=== PATIENT | female | born 1990 | race Caucasian/White ===

== ENCOUNTER → 2018-08-30 | Outpatient (CLI) | payer OTHER | LOC: FIMAGING 07:50 | PROVIDERS: ATTEND Obstetrics & Gynecology | DX: O35.8XX0 Maternal care for other (suspected) fetal abnormality and damage, not applicable or unspecified (principal); Z3A.34 34 weeks gestation of pregnancy ==

== ENCOUNTER 2018-09-23 11:44 | Observation (INO) | payer OTHER ==
[2018-09-23 12:24] LABS: PLATELET COUNT 221 10^3/uL (150-400)
--- NOTE | 2018-09-23 14:35 | PDGENHP ---
History and Physical - Chief Complaint headache - History of Present Illness 27 at 38w1d presented with MESSER today, and some visual changes. Took acetominophen prior to arrival and since being here, MESSER and visual changes have all resolved. Currently, good FM, no VB, no LOF. Occas mild ctxn. Does have a hx of migraines with aura, but has not had any during . No epigastric or RUQ pain. course c/b: depression and anxiety - managed without meds, pyelectasis with plan for follow up of baby. labs wnl including neg Innatal and Standard Panel, AB pos, Rub Imm and GBS neg. History Information - Allergies/Home Medication List Allergies/Adverse Reactions: Penicillins Allergy (Verified 09/23/18 11:58) I have personally reviewed and updated: family history, medical history, social history, surgical history - Past Medical History Additional medical history: anxiety & depression - managed without medications currently. asthma. migraines - Surgical History Additional surgical history: wisdom teeth - Family History Additional family history: colon ca, DM - MGF. pancreatic ca - PGM. CVA - PGF - Social History Smoking Status: Never smoked Alcohol Use: None Drug Use: None Review of Systems Review of Systems: ROS: 10pt was reviewed & negative except for what was stated in HPI & below Physical Exam Physical Exam: VSS, afeb Bps 120-130's / 80s. Only one BP with a diastolic in the 90s, at 93. FHR - reactive, Cat 1 toco - irreg ctxns q 2-5, but pt not feeling the majority of them Constitutional: no apparent distress, appears nourished Eyes: PERRL, EOMI Ears, Nose, Mouth, Throat: moist mucous membranes, hearing normal, ears appear normal Cardiovascular: regular rate and rhythym Respiratory: no respiratory distress, no rales or rhonchi, clear to auscultation Gastrointestinal: normoactive bowel sounds, soft, non-tender abdomen (fundus c/ w 38 wk, NT) Skin: warm, normal color Musculoskeletal: full muscle strength Neurologic: AAOx3 Psychiatric: interacting appropriately Lab Data & Imaging Review 09/23/18 12:11 09/23/18 12:11 WBC 11.83 10^3/uL (3.80-9.50) H 09/23/18 12:11 RBC 4.46 10^6/uL (4.18-5.33) 09/23/18 12:11 Hgb 12.6 g/dL (12.6-16.3) 09/23/18 12:11 Hct 38.0 % (38.0-47.0) 09/23/18 12:11 MCV 85.2 fL (81.5-99.8) 09/23/18 12:11 MCH 28.3 pg (27.9-34.1) 09/23/18 12:11 MCHC 33.2 g/dL (32.4-36.7) 09/23/18 12:11 RDW 15.1 % (11.5-15.2) 09/23/18 12:11 Plt Count 221 10^3/uL (150-400) 09/23/18 12:11 MPV 9.6 fL (8.7-11.7) 09/23/18 12:11 Neut % (Auto) 79.9 % (39.3-74.2) H 09/23/18 12:11 Lymph % (Auto) 11.6 % (15.0-45.0) L 09/23/18 12:11 Peñuelas % (Auto) 5.2 % (4.5-13.0) 09/23/18 12:11 Eos % (Auto) 2.5 % (0.6-7.6) 09/23/18 12:11 Baso % (Auto) 0.3 % (0.3-1.7) 09/23/18 12:11 Nucleat RBC Rel Count 0.0 % (0.0-0.2) 09/23/18 12:11 Absolute Neuts (auto) 9.47 10^3/uL (1.70-6.50) H 09/23/18 12:11 Absolute Lymphs (auto) 1.37 10^3/uL (1.00-3.00) 09/23/18 12:11 Absolute Monos (auto) 0.61 10^3/uL (0.30-0.80) 09/23/18 12:11 Absolute Eos (auto) 0.29 10^3/uL (0.03-0.40) 09/23/18 12:11 Absolute Basos (auto) 0.03 10^3/uL (0.02-0.10) 09/23/18 12:11 Absolute Nucleated RBC 0.00 10^3/uL (0-0.01) 09/23/18 12:11 Immature Gran % 0.5 % (0.0-1.1) 09/23/18 12:11 Immature Gran # 0.06 10^3/uL (0.00-0.10) 09/23/18 12:11 BUN 6 mg/dL (7-23) L 09/23/18 12:11 Creatinine 0.5 mg/dL (0.6-1.0) L 09/23/18 12:11 Estimated GFR > 60 09/23/18 12:11 Uric Acid 3.9 mg/dL (2.5-6.8) 09/23/18 12:11 Total Bilirubin 0.5 mg/dL (0.1-1.4) 09/23/18 12:11 Conjugated Bilirubin 0.2 mg/dL (0.0-0.5) 09/23/18 12:11 Unconjugated Bilirubin 0.3 mg/dL (0.0-1.1) 09/23/18 12:11 AST 30 IU/L (14-46) 09/23/18 12:11 ALT 26 IU/L (9-52) 09/23/18 12:11 Lactate Dehydrogenase 554 IU/L (313-618) 09/23/18 12:11 Urine Color YELLOW 09/23/18 12:11 Urine Appearance HAZY 09/23/18 12:11 Urine pH 6.0 (5.0-7.5) 09/23/18 12:11 Ur Specific [place] 1.010 (1.002-1.030) 09/23/18 12:11 Urine Protein NEGATIVE (NEGATIVE) 09/23/18 12:11 Urine Ketones 1+ (NEGATIVE) H 09/23/18 12:11 Urine Blood NEGATIVE (NEGATIVE) 09/23/18 12:11 Urine Nitrate NEGATIVE (NEGATIVE) 09/23/18 12:11 Urine Bilirubin NEGATIVE (NEGATIVE) 09/23/18 12:11 Urine Urobilinogen NEGATIVE EU (0.2-1.0) 09/23/18 12:11 Ur Leukocyte Esterase NEGATIVE (NEGATIVE) 09/23/18 12:11 Ur Random Creatinine 50.1 mg/dL 09/23/18 12:31 U Random Total Protein 9 mg/dL (0-11) 09/23/18 12:31 Urine Glucose NEGATIVE (NEGATIVE) 09/23/18 12:11 p/c = 0.18 Assessment & Plan Assessment: 27 yo primip at 38w1d with MESSER and vis changes which have resolved with rest and acetominophen. BPs elevated (120-130/80s) over baseline through course (100s/ 60s) Plan: dc home with preeclamptic precautions. BP check and NST in the office tomorrow. Abena Maradiaga MD, FACOG [facility].
== END 2018-09-23 14:24 | disposition home or self-care (01) ==
LOC: FLD 11:44
PROVIDERS: ADMIT Hospitalist; ATTEND Hospitalist
DX: O99.89 Other specified diseases and conditions complicating pregnancy, childbirth and the puerperium (principal); R51 Headache; Z3A.38 38 weeks gestation of pregnancy
CPT/HCPCS: G0378 ×2

== ENCOUNTER 2018-10-03 10:41 | Observation (INO) | payer OTHER ==
[2018-10-03 11:36] LABS: PLATELET COUNT 256 10^3/uL (150-400)
--- NOTE | 2018-10-03 15:29 | GHP ---
DATE OF ADMISSION: 10/03/2018 ADMITTING DIAGNOSES: 1. Intrauterine at 39 weeks and 4 days. 2. Elevated blood pressures. HISTORY OF PRESENT ILLNESS: The patient is a 27-year-old 2, para 0-0-1- 0 at 39 weeks and 4 days, with an estimated due date of 10/06/2018 by LMP 12/30/2017 and consistent with first trimester ultrasound at 8 weeks. Patient presented to the office today for a visit with elevated blood pressures. Initial blood pressure was 126/86, and repeat was 134/96 x2. The patient was frustrated after a 40-minute wait. She denies any headaches, visual changes, or right upper quadrant pain. She did have headache about a week ago, which resolved and had a negative PIH workup. She is very emotional today. Last night, she had some nausea and vomiting around dinner time. Denies any nausea, vomiting today. The patient was sent over to Labor and Delivery for a PIH evaluation. The patient states there is good movement noted. She denies any contractions, leakage of fluid, or vaginal bleeding. The patient has good care at [facility], and presented in her 1st trimester. is complicated by history of depression and anxiety; the patient is not currently taking any medications, and has had no issues during the . History of migraine headaches, which were not an issue during this . There was a diagnosis of bilateral pyelectasis at 20 weeks, and the patient had ultrasounds serially with MFM, and plan is followup 1 to 2 weeks of life with imaging. The patient did receive Tdap as well as flu vaccine. GBS culture is negative. PAST OB HISTORY: In 2013, TAB. 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 Cycles are every 29 days for 4 to 5 days. LMP 12/30/2017. The patient denies a history of abnormal Pap smears or any exposure to sexually-transmitted diseases. CURRENT MEDICATIONS: Include vitamins, folic acid, calcium. ALLERGIES: Penicillin. PAST MEDICAL HISTORY: Remarkable for depression, anxiety, migraine headaches. PAST SURGICAL HISTORY: Julian teeth extraction. FAMILY HISTORY: Maternal grandfather: Colon cancer at age 88. Paternal grandmother: Pancreatic cancer. Mother: Migraine headaches. Paternal uncle: Seizure disorder. Paternal grandfather: Stroke. SOCIAL HISTORY: The patient is and lives with her . She is in tech support. Denies any current alcohol, tobacco, or illicit drug use. REVIEW OF SYSTEMS: A 10-point review of systems is negative. LABS: First trimester H and H, 14 and 39.2, platelets 210. Blood type AB-positive, antibody negative. RPR nonreactive. Rubella immune. Hepatitis B surface antigen negative. HIV negative. Standard panel is negative. UA culture is negative. Pap, gonorrhea, chlamydia cultures all negative. Innatal screen negative. Third trimester H and H 11.9 and 36. One- hour glucola 97. GBS culture is negative. EXAM: VITAL SIGNS: On admission, stable. The patient is afebrile at 37.6, heart rate 76, respirations 18. Blood pressures are labile, as low as 115/65 and a high of 142/95 when the RN was drawing blood. GENERAL: The patient is a well-nourished , well-developed female. Alert and oriented x3. No apparent distress. SKIN: Warm, dry without rash. NEURO: Grossly intact. CARDIOVASCULAR: Regular rate and rhythm. LUNGS: Clear to auscultation bilaterally. ABDOMEN: Gravid, soft , and nontender. PELVIC EXAM: The patient is noted to be 1 cm dilated, 50% effaced, -2, intact, cephalic. EXTREMITIES: Normal to inspection without calf tenderness or edema. Normal reflexes. No clonus. heart tones category 1 tracing with baseline of 140 beats per minute. Positive accelerations. No decelerations. Moderate variability. On toco, she is indira irregularly every 3 to 7 minutes. The patient does not feel these contractions. LABORATORY DATA: H and H of 12.6 and 38.8; platelets 256. Creatinine of 0.5. Uric acid 3.7. AST 27, ALT 40. LDH is 520. Urine random creatinine 9.8, urine random protein 14, which is elevated; [id number] at 1.4. ASSESSMENT/PLAN: The patient is a 27-year-old 2, para 0-0-1-0 at 39 and 4 weeks, who presents with elevated blood pressures. 1. Admit to Labor and Delivery for observation 2. Serial blood pressures mostly stable 3. The patient is asymptomatic at this time. 4. heart tones arCategory 1 tracing, reassuring. 5. Review lab work that was all normal, except for elevated protein-creatinine ratio. She is asymptomatic at this time and had only 2 blood pressures over the last 2 hours of 140/90's. The patient does meet criteria for preeclampsia at this time, with no severe features. Discussed induction of labor and patient would rather have close monitoring of her blood pressures and is more comfortable going home at this time. 6. Plan is to discharge patient home with repeat blood pressure, NST in the office 10/05/18. She will get a blood pressure cuff and monitor blood pressures at home and watch for any -induced hypertension symptoms. 7. Instructed patient to call with any elevated blood pressures greater than 140/90, any PIH symptoms; labor precautions given as well. /[id number]/MODL MTDD
== END 2018-10-03 13:33 | disposition home or self-care (01) ==
LOC: FLD 10:41
PROVIDERS: ADMIT Obstetrics & Gynecology; ATTEND Obstetrics & Gynecology
PROC: 4A1HX4Z Monitoring of Products of Conception, Cardiac Electrical Activity, External Approach (ICD-10-PCS; principal; 2018-10-03)
DX: Z34.93 Encounter for supervision of normal pregnancy, unspecified, third trimester (principal); R03.0 Elevated blood-pressure reading, without diagnosis of hypertension; Z3A.39 39 weeks gestation of pregnancy
CPT/HCPCS: 59025; G0378

== ENCOUNTER 2018-10-03 21:54 | Inpatient (IN) | payer OTHER ==
[2018-10-03] MEDS ORDERED: EPSOM SALT 454 GM TP PRN (22:09)
[2018-10-03] MEDS ORDERED: OXYTOCIN/RINGERS LACTATE 1,000 ML IV PRN (22:09)
[2018-10-03] MEDS ORDERED: IBUPROFEN 600 MG TAB PO PRN (22:09)
[2018-10-03] MEDS ORDERED: TERBUTALINE SULFATE 1 MG/ML VIAL IV PRN (22:09)
[2018-10-03] MEDS ORDERED: LIDOCAINE 1% 300 MG/30 ML SDV SC PRN (22:09)
[2018-10-03] MEDS ORDERED: OLIVE OIL 118 ML BTL MISC PRN (22:09)
[2018-10-03] MEDS ORDERED: MISOPROSTOL 200 MCG TAB PR PRN (22:09)
[2018-10-03] MEDS ORDERED: LR 1,000 ML IV PRN (22:09)
[2018-10-03] MEDS ORDERED: LR 500 ML IV PRN (22:50)
[2018-10-03] MEDS ORDERED: ACETAMINOPHEN 500 MG TAB PO PRN (22:58)
[2018-10-03] MEDS ORDERED: ZOLPIDEM TARTRATE 5 MG TAB PO PRN (22:58)
[2018-10-03] MEDS ORDERED: OXYTOCIN/RINGERS LACTATE 500 ML IV SCH (23:00)
[2018-10-03 23:15] LABS: PLATELET COUNT 272 10^3/uL (150-400)
--- NOTE | 2018-10-03 23:47 | GHP ---
DATE OF ADMISSION: 10/03/2018 ADMITTING DIAGNOSES: 1. Intrauterine at 39 weeks and 4 days. 2. Preeclampsia without severe features. HISTORY OF PRESENT ILLNESS: Patient is a 27-year-old 2, para 0-0-1-0 at 39 weeks and 4 days with estimated due date 10/06/2018, by LMP 12/30/2017, and consistent with first trimester ultrasound at 8 weeks. The patient presented to labor and delivery earlier this afternoon with elevated blood pressures. She was seen in the office and had an initial blood pressure of 126/ 86, repeat was 134/96. The patient then sent to Labor and Delivery. She had mostly normal blood pressures, but had 2 blood pressures of 140s over 90s. The patient denies any headaches, visual changes, or right upper quadrant pain. The patient was sent home with [facility] precautions. Patient then called this evening with a blood pressure of 141/95. She still denies any visual changes, headaches, or right upper quadrant epigastric pain. States good movement. She is still indira irregularly every 3-5 minutes. Denies any leakage of fluid or vaginal bleeding. The patient has good care at [facility], and presented in her 1st trimester. is complicated by history of depression, anxiety. Patient is not currently taking any medications and has had no issues during the . The patient has history of migraine headaches, which were not an issue during the . There was diagnosis of bilateral pyelectasis at 20 weeks. The patient had serial ultrasounds with MFM and plan is followup 1-2 weeks of life with imaging. The patient did receive Tdap as well as flu vaccine. GBS culture is negative. PAST OB HISTORY: In 2013, patient had a TAB. PAST BOX PACKER HISTORY: Age of menarche is 10. Cycles are every 29 days, for 4-5 days. LMP 12/30/2017. The patient denies a history of abnormal Pap smears or exposure to sexually transmitted diseases. CURRENT MEDICATIONS: vitamins, folic acid, calcium. ALLERGIES: Penicillin. PAST MEDICAL HISTORY: Remarkable for depression, anxiety, migraine headaches. PAST SURGICAL HISTORY: Cylinder teeth extraction. FAMILY HISTORY: Paternal grandfather, colon cancer at age 88. Paternal grandmother, pancreatic cancer. Mother, migraine headaches. Paternal uncle, seizure disorder. Paternal grandfather, stroke. SOCIAL HISTORY: The patient is and lives with her . She is in tech support. Denies any alcohol, tobacco, or illicit drug use currently. REVIEW OF SYSTEMS: 10-point review of systems is negative. Pertinent positives noted in HPI. LABS: First trimester H and H 14 and 39.2. Platelets 210. Blood type AB-positive, antibody negative. RPR nonreactive. Rubella immune. Hepatitis B surface antigen negative. HIV negative. Standard panel is negative. UA cultures negative. Pap, gonorrhea, chlamydia cultures all negative. Innatal screen is negative. 3rd trimester H and H 11.9 and 36. One- hour Glucola 97. GBS culture is negative. LABS: Platelet count 256, creatinine 0.5, uric acid 3.7, AST 27, ALT 40, LDH 520 , P to C ratio elevated at 1.4. PHYSICAL EXAMINATION: VITAL SIGNS: On admission vital signs are stable. The patient is afebrile at 36.2, heart rate 92, respirations 18, initial blood pressure 135/92. GENERAL APPEARANCE: The patient is a well-nourished, well- developed female, alert and oriented x3. No apparent distress. SKIN: Warm, dry without rash. NEURO: Grossly intact. CARDIOVASCULAR: Regular rate and rhythm. LUNGS: Clear to auscultation bilaterally. ABDOMEN: Gravid, soft, nontender. PELVIC: 1 cm dilated, 60% effaced, -2, intact, cephalic. EXTREMITIES: Normal to inspection without calf tenderness or edema. Normal reflexes with no clonus. heart tones reveal Category II tracing with baseline of 140 beats per minute. Positive accelerations. Occasional variable decels. Moderate variability. On toco, she is indira irregularly every 3-5 minutes. Overall, the strip is reassuring. ASSESSMENT AND PLAN: Patient is a 27-year-old 2, para 0-0-1-0 at 39 and 4 weeks with preeclampsia without severe features. 1. Admit to Labor and Delivery for induction of labor. 2. Mckenna bulb was placed digitally without difficulty and inflated with 30 cc NS. Plan to start Pitocin per protocol in the in morning at 0600. 3. GBS culture is negative. No prophylactic antibiotics are needed. 4. Will continue to monitor blood pressures closely as well as development of any -induced hypertension symptoms. If she develops any severe features , will start magnesium sulfate. 5. Anticipate spontaneous vaginal delivery. /[id number]/MODL MTDD
--- NOTE | 2018-10-04 09:17 | OBPROG ---
Labor Progress Note Assessment/Plan: Assessment: IUP at 39w5d, preeclampsia without severe features induction with nicholson last noc and pit this am AB+. GBS- Plan: AROM at 851am, clear cont pit nitrous prn cx 10/04/18 09:13 Subjective/Intrapartum Course: 10/04/18 09:17 Pt doing well. Got good sleep with ambien. nicholson didn't bother through night - still in place. GFM. no MESSER or n/v this am. no visual changes. understands plan - will try to maintain activity but understands elevated b/p might require bedrest. ok with AROM - nicholson out and cx , AROM with clear fluid - 08:51 Objective: 10/03/18 23:06 Patient ABO/Rh AB POSITIVE 10/03/18 23:06 - SVE Dilation (cm): 4 Effacement (%): 90 Station: 0 Membranes: AROM Amniotic Fluid Color: Clear - Contraction Pattern Assessment Current Contraction Pattern: Regular (q3 min on 6 mu/min pit - intensity increased after AROM) - FHR Assessment Jackson FHR (bpm): 130 FHR Pattern Variability: Moderate FHR Category: 1 (had variable after AROM but none since) Oxytocin Orders Assessment - Pre-Induction/Augmentation Assessment Gestational Age: 39 week(s) and 4 day(s) ICD10 Worksheet Patient Problems: Problems Problem Status Onset Pre-eclampsia affecting , antepartum Acute
[2018-10-04] MEDS ORDERED: LIDOCAINE 1% 300 MG/30 ML SDV ONE (09:28)
[2018-10-04] MEDS ORDERED: OLIVE OIL 118 ML BTL ONE (09:28)
[2018-10-04] MEDS ORDERED: OXYTOCIN 10 UNIT/ML VIAL ONE (09:28)
[2018-10-04] MEDS ORDERED: TERBUTALINE SULFATE 1 MG/ML VIAL ONE (09:28)
[2018-10-04] MEDS ORDERED: AMMONIA AROMATIC 1 EACH AMP IH ONE (09:28)
[2018-10-04] MEDS ORDERED: MISOPROSTOL 200 MCG TAB ONE (09:29)
[2018-10-04] MEDS ORDERED: fentaNYL 2MCG/ML/BUP 0.1% RTU 100 ML BAG EP ONE (11:34)
[2018-10-04] MEDS ORDERED: BUPIVACAINE 0.25% 30 ML SDV ONE (11:35)
[2018-10-04] MEDS ORDERED: PHENYLEPHRINE HCL 100 MCG/ML SYR ONE (11:35)
[2018-10-04] MEDS ORDERED: fentaNYL 100 MCG/2 ML INJ ONE (11:36)
[2018-10-04] MEDS ORDERED: PHENYLEPHRINE HCL 100 MCG/ML SYR IVP PRN (15:27)
[2018-10-04] MEDS ORDERED: ONDANSETRON 4 MG/2 ML VIAL IVP PRN (15:27)
[2018-10-04] MEDS ORDERED: fentaNYL 2MCG/ML/BUP 0.1% RTU 100 ML EP SCH (15:30)
[2018-10-04] MEDS ORDERED: LR 500 ML IV SCH (15:30)
--- NOTE | 2018-10-04 15:34 | POSTANESTH ---
Post Anesthetic Evaluation Cardiovascular Status: Normal, Stable, Similar to Pre-Op Cond Respiratory Status: Normal, Stable, Similar to Pre-op Cond. Level of Consciousness/Mental Status: Can Participate in Eval, Alert and Oriented Pain Control: Adequate, Prn Tx Ordered Nausea/Vomiting Control: Adequate, Prn Tx Ordered Complications Possibly Related to Anesthesia: None Noted
--- NOTE | 2018-10-04 15:34 | PREANESOB ---
Obstetric Pre-Anesthesia Info - General Info Proposed Procedure: Labor and delivery with pitocin. : 2 Para: 0 MALIK: 10/06/18 Gestational Age: 39 week(s) and 4 day(s) - Info Status: Full Term Monitors: External FHR Baseline (bpm): 130 FHR Pattern: Reassuring - Labor Status Cervical Dilation per last OB SVE: 4 Station per last OB SVE: 0 Amniotic Fluid Color: Clear Pitocin: In Use PIH: Mild Indications for Labor Analgesia: Induction of Labor Labor Epidural: Proposed Anesthesia ROS: Muddy teeth. Allergies/Adverse Reactions: Allergy/AdvReac Type Severity Reaction Status Date / Time julia Allergy Verified 10/03/18 11:03 Penicillins Allergy Rash Verified 10/03/18 11:02 pine nut Allergy Verified 10/03/18 11:03 Pistacia Vera (Pistachio) Allergy Verified 10/03/18 11:03 cashews Allergy Uncoded 10/03/18 11:03 Home Medications: Medication Instructions Recorded Fluticasone Nasal [Flonase Nasal 2 sprays NASAL DAILY 10/03/18 [place]] Vit27&Calcium/Iron/FA 10/03/18 [] Visit Medications: Generic Name Dose Route Start Last Admin Trade Name Freq PRN Reason Stop Dose Admin Acetaminophen 1,000 mg 10/03/18 22:58 Tylenol PO 04/01/19 22:57 Q6HRS PRN Pain, Mild/Fever, Can Take PO Diphenhydramine HCl 25 - 50 mg 10/04/18 15:27 Benadryl Injection IVP 04/02/19 15:26 Q6HRS PRN Itching Lactated Ringer's 1,000 mls @ 0 mls/hr 10/03/18 22:09 10/04/18 05:59 Lr IV 10/04/18 22:08 1,000 mls PRN PRN Administration SEE PROTOCOL CONDITIONS Protocol Per Protocol Oxytocin/Lactated Ringer's 1,000 mls @ 125 mls/hr 10/03/18 22:09 Pitocin 20 Units/Lr (Premix) IV PRN PRN Post bleeding Lactated Ringer's 500 mls @ 500 mls/hr 10/03/18 22:50 Lr IV 10/04/18 22:50 PRN PRN Maternal Hypotension Oxytocin/Lactated Ringer's 500 mls @ 0 mls/hr 10/03/18 23:00 10/04/18 05:59 Pitocin 30 Units/Lr (Premix) IV 04/01/19 22:59 500 mls CONT ROBERTO Administration Protocol Per Protocol Fentanyl/Bupivacaine HCl 100 mls @ 0 mls/hr 10/04/18 15:30 Fentanyl/Bupivacaine/Ns 2 Mcg/Ml 0.1% (Premix EP 10/14/18 15:29 CONT ROBERTO Protocol As Directed Lactated Ringer's 500 mls @ 0 mls/hr 10/04/18 15:30 Lr IV 04/02/19 15:29 CONT ROBERTO As Directed Ibuprofen 600 mg 10/03/18 22:09 Motrin PO ONCE PRN post , pain Lidocaine HCl 300 mg 10/03/18 22:09 Lidocaine Hcl 1% SC 04/01/19 22:08 ONCE PRN episiotomy Magnesium Sulfate 454 gm 10/03/18 22:09 Epsom Salt TP 04/01/19 22:08 Q1H PRN perineal discomfort Misoprostol 800 - 1,000 mcg 10/03/18 22:09 Cytotec OR ONCE PRN Vaginal Atony/Bleeding Andrews Oil 118 ml 10/03/18 22:09 Sweet Oil MISC 04/01/19 22:08 ONCE PRN perineal massage Ondansetron HCl 4 mg 10/04/18 15:27 Zofran IVP 10/05/18 15:26 Q4HRS PRN Nausea/Vomiting, Can't Take PO Phenylephrine HCl 100 mcg 10/04/18 15:27 Neosynephrine IVP 04/02/19 15:26 .Q2M PRN Hypotension Terbutaline Sulfate 0.25 mg 10/03/18 22:09 Brethine IV 04/01/19 22:08 ONCE PRN Tachysystole Zolpidem Tartrate 5 mg 10/03/18 22:58 10/03/18 23:46 Ambien PO 04/01/19 22:57 5 mg HS PRN Administration Sleep/Insomnia Discontinued Medications Generic Name Dose Route Start Last Admin Trade Name Freq PRN Reason Stop Dose Admin Ammonia (Aromatic Spirit) Confirm 10/04/18 09:28 Ammonia Aromatic Administered 10/04/18 09:29 Dose 1 each IH .STK-MED ONE Bupivacaine HCl Confirm 10/04/18 11:35 Sensorcaine 0.25% Sdv Administered 10/04/18 11:36 Dose 30 ml .ROUTE .STK-MED ONE Fentanyl Confirm 10/04/18 11:36 Sublimaze Administered 10/04/18 11:37 Dose 100 mcg .ROUTE .STK-MED ONE Fentanyl/Bupivacaine HCl Confirm 10/04/18 11:34 Fentanyl/Bupivacaine/Ns 2 Mcg/Ml 0.1% (Premix Administered 10/04/18 11:35 Dose 100 ml EP .STK-MED ONE Lidocaine HCl Confirm 10/04/18 09:28 Lidocaine Hcl 1% Administered 10/04/18 09:29 Dose 300 mg .ROUTE .STK-MED ONE Misoprostol Confirm 10/04/18 09:29 Cytotec Administered 10/04/18 09:30 Dose 1,000 mcg .ROUTE .STK-MED ONE Andrews Oil Confirm 10/04/18 09:28 Sweet Oil Administered 10/04/18 09:29 Dose 118 ml .ROUTE .STK-MED ONE Oxytocin Confirm 10/04/18 09:28 Pitocin Administered 10/04/18 09:29 Dose 40 unit .ROUTE .STK-MED ONE Phenylephrine HCl Confirm 10/04/18 11:35 Neosynephrine Administered 10/04/18 11:36 Dose 1,000 mcg .ROUTE .STK-MED ONE Terbutaline Sulfate Confirm 10/04/18 09:28 Brethine Administered 10/04/18 09:29 Dose 1 mg .ROUTE .STK-MED ONE - Anesthesia History Response to Local Anesthetics: Normal Anesthesia & Operative History: No Prior Problems Family Anesthesia History: Negative - Social History Substance Use/Abuse: Denies - Vital Signs Blood Pressure: 126/67 Heart Rate: 60 Height/Weight (Nursing): Height 157.48 cm Weight 80.286 kg - Focused Exam Neck exam: FROM Mallampati Score: Class 2 Mouth exam: normal dental/mouth exam Pulmonary: no respiratory distress Cardiovascular: regular rate and rhythym Labs: 10/03/18 23:06 Patient ABO/Rh AB POSITIVE 10/03/18 23:06 - Plan Anesthetic Plan: CSE Consent Signed and on Chart: Yes Patient/Guardian Understands and Agrees to Plan: Yes Urgent/Emergent Case: Alberta rousseau completed preop but documented later for safe timely pt care
--- NOTE | 2018-10-04 16:19 | OBDEL ---
Info Type: Vaginal Presentation at Delivery: Vertex L&D Analgesia/Anesthesia Type: Epidural GBS+: No Intrapartum Medications: Generic Name Dose Route Start Last Admin Trade Name Freq PRN Reason Stop Dose Admin Lactated Ringer's 1,000 mls @ 0 mls/hr 10/03/18 22:09 10/04/18 05:59 Lr IV 10/04/18 22:08 1,000 mls PRN PRN Administration SEE PROTOCOL CONDITIONS Protocol Per Protocol Oxytocin/Lactated Ringer's 500 mls @ 0 mls/hr 10/03/18 23:00 10/04/18 05:59 Pitocin 30 Units/Lr (Premix) IV 04/01/19 22:59 500 mls CONT ROBERTO Administration Protocol Per Protocol Zolpidem Tartrate 5 mg 10/03/18 22:58 10/03/18 23:46 Ambien PO 04/01/19 22:57 5 mg HS PRN Administration Sleep/Insomnia - Hospital Course Intrapartum: 10/04/18 09:17 Pt doing well. Got good sleep with ambien. nicholson didn't bother through night - still in place. GFM. no MESSER or n/v this am. no visual changes. understands plan - will try to maintain activity but understands elevated b/p might require bedrest. ok with AROM - nicholson out and cx 4/90/0, AROM with clear fluid - 08:51 Indications for Delivery: Preeclampsia Mild Vaginal Delivery - Delivery Provider Delivery Physician/CNM: Vida Palacio - Labor and Delivery Onset of Contractions Date: 10/04/18 Onset of Contractions Time: 08:51 Onset of Contractions Type: Induced Rupture of Membranes Date: 10/04/18 Rupture of Membranes Time: 08:51 Rupture of Membranes Type: Artificial Amniotic Fluid Color: Clear Dilation Complete Date: 10/04/18 Dilation Complete Time: 14:15 Placenta Delivery Date: 10/04/18 Placenta Delivery Time: 15:45 Total Hours of Labor: 6 Non-surgical Procedures: Amniotomy Laceration: 2nd Degree (vaginal and right perineal) Repair: 3-0, Vicryl Vaginal Sponge Count Correct: Yes Vaginal Needle Count Correct: Yes Vaginal Sweep Performed: Yes EBL: 300 Delivery Events: Nuchal Cord (tight, cut on perineum), Other (Specify) (right arm compound around neck) - Medications Labor Augmentation/Induction Methods Used: Pitocin Labor Augmentation/Induction Indication: Other (Specify) (preeclampsia without severe features) Data MALIK: 10/06/18 Gestational Age: 39 week(s) and 5 day(s) Jackson Delivery Date: 10/04/18 Delivery Time: 15:37 Sex of : Male (Corbin Duval) Score (1 Min): 5 Score (5 Min): 8 ICD10 Worksheet Patient Problems: Problems Problem Status Onset (spontaneous vaginal delivery) Acute Pre-eclampsia affecting , antepartum Acute
[2018-10-04] MEDS: IBUPROFEN 600 MG TAB PO SCH (22:31)
[2018-10-04] MEDS: ACETAMINOPHEN 325 MG TAB PO SCH (22:31)
[2018-10-05] MEDS: IBUPROFEN 600 MG TAB PO SCH ×4 (05:18→23:42)
[2018-10-05] MEDS: ACETAMINOPHEN 325 MG TAB PO SCH ×5 (05:18→23:50)
--- NOTE | 2018-10-05 09:58 | OBPP ---
Progress Note Assessment/Plan: Assessment: 27 y/o PPD #1 s/p doing well. Plan: Continue ice packs to perineum and may try sitz baths today. support , Iburprofen and Tylenol prn. Routine PPC. 10/05/18 09:59 Subjective/ Course: 10/05/18 09:54 Pt is doing well this am. She has good pain control with Ibuprofen and [place], using ice packs for perineal swelling. She is ambulating and voiding without difficulty and has min lochia. She is working on breast feeding and baby is doing well. Objective: 10/03/18 23:06 Patient ABO/Rh AB POSITIVE 10/03/18 23:06 Temp Pulse Resp BP Pulse Ox 36.1 C 79 16 129/88 H 97 10/04/18 22:15 10/04/18 22:15 10/04/18 22:15 10/04/18 22:15 10/04/18 22:15 Uterine Position/Fundal Height: Umbilicus -2 Uterine Tone: Firm Physical Exam - Physical Exam General Appearance: alert, no apparent distress Neck: non-tender, full range of motion, supple Respiratory: chest non-tender, lungs clear, normal breath sounds Cardiac/Chest: regular rate, rhythm Abdomen: normal bowel sounds, other (perineum with small, non-expanding hematoma @ introitus) Extremities: swelling (no), Suresh's sign (neg)
[2018-10-05] MEDS: FERRO-SEQUELS 65 MG TAB.ER PO SCH (11:11)
[2018-10-05] MEDS: DOCUSATE SODIUM 100 MG CAP PO PRN ×2 (14:14→23:42)
[2018-10-06] MEDS: ACETAMINOPHEN 325 MG TAB PO SCH (05:51)
[2018-10-06] MEDS: IBUPROFEN 600 MG TAB PO SCH ×2 (05:51→11:45)
--- NOTE | 2018-10-06 10:17 | OBPP ---
Progress Note Assessment/Plan: Assessment: 1) s/p PPD # 2 - pt is stable 2) Preeclampsia without severe features - BPs labile, pt is asymptomatic Plan: Plan for d/c home later today Instructions reviewed with pt Rx given for Motrin Cont PNV, colace prn Pelvic rest RTC in 1 week for BP check and again in 4 and 6 weeks for pp visit PIH precautions given 10/06/18 10:13 Subjective/ Course: 10/05/18 09:54 Pt is doing well this am. She has good pain control with Ibuprofen and [place], using ice packs for perineal swelling. She is ambulating and voiding without difficulty and has min lochia. She is working on breast feeding and baby is doing well. 10/06/18 10:14 Pt seen and examined. Doing well, with no complaints. Pt is in rocking chair, breast feeding baby boy. She notes mild cramping, controlled with Motrin. Mod lochia. Pt is rossy regular diet, voiding without difficulty and passing flatus. No BM yet. Objective: 10/03/18 23:06 Patient ABO/Rh AB POSITIVE 10/03/18 23:06 Temp Pulse Resp BP Pulse Ox 36.2 C 98 18 139/97 H 94 10/05/18 21:10 10/05/18 21:10 10/05/18 21:10 10/05/18 21:10 10/05/18 21:10 Uterine Position/Fundal Height: Umbilicus -2 Uterine Tone: Firm Physical Exam - Physical Exam General Appearance: WD/WN, alert, no apparent distress Respiratory: lungs clear, normal breath sounds Cardiac/Chest: regular rate, rhythm Abdomen: normal bowel sounds, non-tender, soft, flatus (+) Extremities: non-tender, normal inspection Skin: normal color, warm/dry Neuro/Psych: alert, normal mood/affect, oriented x 3
--- NOTE | 2018-10-06 10:19 | OBGCSDC ---
General Delivery Information - General Info : 2 Para: 1 Abortions: 0 Type: Vaginal L&D Analgesia/Anesthesia Type: Epidural, Spinal Admission Date: 10/03/18 Labs: Patient ABO/Rh AB POSITIVE 10/03/18 23:06 Hct 35.8 % (38.0-47.0) L 10/03/18 23:06 - Hospital Course Intrapartum: 10/04/18 09:17 Pt doing well. Got good sleep with ambien. nicholson didn't bother through night - still in place. GFM. no MESSER or n/v this am. no visual changes. understands plan - will try to maintain activity but understands elevated b/p might require bedrest. ok with AROM - nicholson out and cx /, AROM with clear fluid - 08:51 : 10/05/18 09:54 Pt is doing well this am. She has good pain control with Ibuprofen and [place], using ice packs for perineal swelling. She is ambulating and voiding without difficulty and has min lochia. She is working on breast feeding and baby is doing well. 10/06/18 10:14 Pt seen and examined. Doing well, with no complaints. Pt is in rocking chair, breast feeding baby boy. She notes mild cramping, controlled with Motrin. Mod lochia. Pt is rossy regular diet, voiding without difficulty and passing flatus. No BM yet. Vaginal - Delivery Provider Delivery Physician/CNM: Vida Palacio - Diagnosis Labor: Induced Rupture of Membranes Type: Artificial Amniotic Fluid Color: Clear Laceration: 2nd Degree (vaginal and right perineal) Repair: 3-0, Vicryl Delivery Events: Nuchal Cord (tight, cut on perineum), Other (Specify) (right arm compound around neck) - Procedures Non-surgical Procedures: Amniotomy - Delivery Non-surgical Procedures: Amniotomy EBL: 300 Data MALIK: 10/06/18 Gestational Age: 40 week(s) and 0 day(s) [place] Delivery Date: 10/04/18 Delivery Time: 15:37 Sex of : Male Weight (gm): 3256 g Score (1 Min): 5 Score (5 Min): 8 Discharge Information - Discharge Information Condition: Good Instruction/Follow Up: One Week (for BP check), Four Weeks, Six Weeks
[2018-10-06] MEDS: FERRO-SEQUELS 65 MG TAB.ER PO SCH (11:45)
[2018-10-06] MEDS: DOCUSATE SODIUM 100 MG CAP PO PRN (11:45)
[2018-10-06 11:57] VITALS: BP 128/90
== END 2018-10-06 13:45 | disposition home or self-care (01) | DRG 807 ==
LOC: FLD 21:54 → OBSVTOIN 22:12 → FOB 10-04 19:23
PROVIDERS: ADMIT Obstetrics & Gynecology; ATTEND Obstetrics & Gynecology
PROC: 0U7C7ZZ Dilation of Cervix, Via Natural or Artificial Opening (ICD-10-PCS; 2018-10-03)
PROC: 3E033VJ Introduction of Other Hormone into Peripheral Vein, Percutaneous Approach (ICD-10-PCS; 2018-10-03)
PROC: 0KQM0ZZ Repair Perineum Muscle, Open Approach (ICD-10-PCS; principal; 2018-10-04)
PROC: 10E0XZZ Delivery of Products of Conception, External Approach (ICD-10-PCS; principal; 2018-10-04)
PROC: 10907ZC Drainage of Amniotic Fluid, Therapeutic from Products of Conception, Via Natural or Artificial Opening (ICD-10-PCS; principal; 2018-10-04)
DX: O14.94 Unspecified pre-eclampsia, complicating childbirth (principal); Z37.0 Single live birth; Z3A.39 39 weeks gestation of pregnancy; O70.1 Second degree perineal laceration during delivery; O69.2XX0 Labor and delivery complicated by other cord entanglement, with compression, not applicable or unspecified
CPT/HCPCS: J2370; J2590; J3010; J3105

== ENCOUNTER → 2018-10-16 | Outpatient (CLI) | payer OTHER | LOC: FLACT 13:02 | PROVIDERS: ATTEND Obstetrics & Gynecology | DX: Z39.1 Encounter for care and examination of lactating mother (principal) | CPT/HCPCS: G0463 ==